=== PATIENT | female | born 1955 | race Caucasian/White ===

== ENCOUNTER → 2020-11-25 | Outpatient (CLI) | payer OTHER ==
[~2020-11-25] MED LIST: ABILIFY 2 MG TAB2 MG PO; ATORVASTATIN CA40 MG PO; BUMETANIDE1 MG PO; CYMBALTA60 MG PO; DESYREL 50 MG T50 MG PO; ELIQUIS2.5 MG PO; FERROUS SULFAT325 M2 PO; GLUCOPHAGE 500500 MG PO; KLONOPIN1 MG PO; LEVOTHYROXINE75 MCG PO; MAGNESIUM OXID500 MG PO; MONTELUKAST SOD10 MG PO; NORVASC 5 MG TAB5 MG PO; OSTERA TABLET1 EACH PO; POTASSIUM CHLO20 ME2 PO; PRILOSEC10 M1 PO; SEROQUEL50 MG PO; VENTOLIN HFA 66.7 GM INH
== END ==
LOC: CT 11-06 10:30
DX: C34.90 Malignant neoplasm of unspecified part of unspecified bronchus or lung (principal); K74.60 Unspecified cirrhosis of liver; R91.1 Solitary pulmonary nodule
CPT/HCPCS: 36415; 71260; 82565; Q9967